=== PATIENT | male | born 1980 | race Caucasian/White ===

== ENCOUNTER 2017-03-03 00:25 | Emergency (ER) | payer MEDICAID ==
[~2017-03-03] VITALS: Ht 175.3 cm; Wt 75.0 kg
[2017-03-03] MEDS ORDERED: ONDANSETRON 4MG ODT PO ONE (06:45)
[2017-03-03] MEDS ORDERED: MORPHINE SULFATE 10 MG/ML CPJ IM ONE (06:45)
[2017-03-03 07:30] VITALS: BP 116/75
[2017-03-03] MEDS ORDERED: ACETAMINOPHEN 325MG TABLET PO ONE (07:30)
[2017-03-03 07:38] LABS: BASOPHILS % 0.2 % (0.0-2.0); EOSINOPHILS % 7.5 % (0.0-5.0); HEMATOCRIT. 36.8 % (42.0-52.0); HEMOGLOBIN. 12.6 g/dL (14.0-18.0); LYMPHOCYTES % 27.5 % (20.0-50.0); MONOCYTES % 9.4 % (2.0-8.0); NEUTROPHILS % 55.4 % (40.0-76.0); PLATELET 315 x1000/uL (130-400); RED BLOOD CELL COUNT 4.66 mill/uL (4.7-6.1); RED CELL DISTRIBUTION WIDTH 17.6 % (11.6-14.6)
[2017-03-03] MEDS ORDERED: BACITRACIN ZINC OINT UDPKT TOP ONE (07:45)
[2017-03-03 07:46] LABS: PROTHROMBIN TIME 10.5 sec
[2017-03-03 07:54] LABS: CARBON DIOXIDE 28 mEq/L (21-32); CHLORIDE 106 mEq/L (98-107)
== END 2017-03-03 08:40 | disposition home or self-care (01) ==
LOC: ER 00:25
DX: N50.82 Scrotal pain (principal); R30.0 Dysuria; N50.89 Other specified disorders of the male genital organs; F17.200 Nicotine dependence, unspecified, uncomplicated; Z88.0 Allergy status to penicillin; Z86.19 Personal history of other infectious and parasitic diseases
CPT/HCPCS: 36415; 73110; 73130; 76870; 80053; 83690; 85025; 85610; 93976; 99285; Q0162